=== PATIENT | male | born 1945 | race Caucasian/White ===

== ENCOUNTER 2017-06-25 10:10 | Inpatient (IN) ==
[2017-06-25] MEDS ORDERED: VANCOMYCIN INJ 1,500 MG in SODIUM CHLORIDE 0.9% 500 ML IV STA (10:37)
[2017-06-25 10:41] LABS: Basophils % 0.4 % (0.0-0.8); Hematocrit 43.5 VOL% (42.0-52.0); Hemoglobin 14.7 GM/DL (14.0-18.0); Immature Granulocytes % 0.5 %; Immature Granulocytes Absolute 0.05 #; Lymphocytes # 1.3 10*3/uL (1.4-4.0); Lymphocytes % 13.2 % (21.2-54.2); Mean Corpuscular HGB Conc 33.8 GM/DL (32-36); Mean Corpuscular Hemoglobin 31 PG (27-34); Mean Corpuscular Volume 90.4 FL (87-102); Mean Platelet Volume 9.9 FL (9.6-12.0); Monocytes # 0.7 10*3/uL (0.11-0.8); Monocytes % 6.6 % (1.7-12.7); Neutrophils # 8.1 10*3/uL (1.4-7.4); Neutrophils % 79.3 % (38.7-73.9); Platelet Count 199 T/CUMM (130-400); Red Blood Count 4.81 MC/CUMM (3.8-5.5); Red Cell Distribution Width 12.8 % (9.3-17.3); White Blood Count 10.2 T/CUMM (4-12)
[2017-06-25] MEDS ORDERED: SODIUM CHLORIDE 0.9% 1,000 ML IV STA ×2 (10:45→12:03)
[2017-06-25 10:50] LABS: PT Patient Result 10.7 SECS; Partial Thromboplastin Time 26.9 SECS (0-40)
[2017-06-25 11:01] LABS: Band Neutrophils 5 % (0-10); Lymphocytes 13 % (20-55); Segmented Neutrophils 79 % (50-85); Total Cells Counted 100
[2017-06-25 11:02] LABS: Hypochromasia 1+; Platelet Estimate Adequate
[2017-06-25 11:10] LABS: Bilirubin,Total 0.5 MG/DL (0.2-1.0); Calcium 8.7 MG/DL (8.5-10.1); Osmolality,Calculated 272.8 MOS/KG (273-304); Potassium 4.6 MMOL/L (3.5-5.1); Total Protein 8.3 G/DL (6.4-8.3)
[2017-06-25 11:38] LABS: Lactic Acid 2.7 MMOL/L (0.4-2.0)
[2017-06-25] MEDS ORDERED: ONDANSETRON 4 MG/2 ML VIAL IV PRN (11:48)
[2017-06-25] MEDS ORDERED: DEXTROSE 50% 25 GM/50 ML VIAL IV PRN (11:48)
[2017-06-25] MEDS ORDERED: ACETAMINOPHEN 325 MG TABLET PO PRN ×2 (11:48→15:13)
[2017-06-25] MEDS ORDERED: GLUCAGON 1 MG VIAL IM PRN (11:48)
[2017-06-25 12:55] LABS: Apearance,Urine CLEAR (Clear); Bilirubin,Urine Negative (Negative); Blood, Urine Negative (Negative); Glucose,Urine (UA) 50 mg/dL (Negative); Hyaline Casts,Urine 2 /LPF (0-3); Ketones,Urine 5 mg/dL (Negative); Mucus,Urine Occasional /LPF (Occasional); Nitrite,Urine Negative (Negative); Protein,Urine 30 MG/DL; Urine Color Yellow (Yellow); Urine Urobilinogen < 2.0 EU/DL (0.2-1.0); WBC,Urine 1 /HPF (0-6)
[2017-06-25] MEDS ORDERED: traMADol 50 MG TABLET PO PRN (14:05)
[2017-06-25] MEDS: SODIUM CHLORIDE 0.9% 1,000 ML IV SCH ×3 (15:40→23:40)
[2017-06-25] MEDS: PIPERACILLIN/TAZOBACTAM 3,375 MG in SODIUM CHLORIDE 0.9% 100 ML IV SCH ×2 (15:41→22:55)
[2017-06-25] MEDS ORDERED: DIPHENOXYLATE/ATROPINE 2.5-0.025 MG TABLET PO PRN (17:36)
[2017-06-25] MEDS: INSULIN LISPRO 100 UNIT/ML SUBCUT SCH ×2 (17:38→22:42)
[2017-06-25] MEDS: DIPHENOXYLATE/ATROPINE 2.5-0.025 MG TABLET PO SCH (17:44)
[2017-06-25] MEDS: ACETAMINOPHEN 500 MG TABLET PO PRN (20:19)
[2017-06-25] MEDS: DOCUSATE SODIUM 100 MG CAPSULE PO SCH (20:22)
[2017-06-26 01:13] LABS: Basophils % 0.5 % (0.0-0.8); Eosinophils % 0.1 % (0.00-10.9); Hemoglobin 12.5 GM/DL (14.0-18.0); Immature Granulocytes % 0.5 %; Immature Granulocytes Absolute 0.04 #; Lymphocytes # 1.8 10*3/uL (1.4-4.0); Lymphocytes % 20.9 % (21.2-54.2); Mean Corpuscular HGB Conc 32.9 GM/DL (32-36); Mean Corpuscular Hemoglobin 30 PG (27-34); Mean Corpuscular Volume 92.2 FL (87-102); Mean Platelet Volume 10.3 FL (9.6-12.0); Monocytes # 0.6 10*3/uL (0.11-0.8); Monocytes % 7.4 % (1.7-12.7); Neutrophils # 5.9 10*3/uL (1.4-7.4); Neutrophils % 70.6 % (38.7-73.9); Platelet Count 181 T/CUMM (130-400); Red Blood Count 4.12 MC/CUMM (3.8-5.5); White Blood Count 8.4 T/CUMM (4-12)
[2017-06-26 01:21] LABS: Calcium 7.5 MG/DL (8.5-10.1); Osmolality,Calculated 277.8 MOS/KG (273-304); Potassium 3.8 MMOL/L (3.5-5.1)
[2017-06-26] MEDS: PIPERACILLIN/TAZOBACTAM 3,375 MG in SODIUM CHLORIDE 0.9% 100 ML IV SCH ×3 (06:31→22:40)
[2017-06-26] MEDS: SODIUM CHLORIDE 0.9% 1,000 ML IV SCH ×2 (06:32→15:27)
[2017-06-26] MEDS: INSULIN LISPRO 100 UNIT/ML SUBCUT SCH ×4 (08:19→22:00)
[2017-06-26] MEDS: PANTOPRAZOLE 40 MG TABLET PO SCH (08:20)
[2017-06-26] MEDS: METOPROLOL TARTRATE 25 MG TABLET PO SCH (08:20)
[2017-06-26] MEDS: CLOPIDOGREL 75 MG TABLET PO SCH (08:20)
[2017-06-26] MEDS: DOCUSATE SODIUM 100 MG CAPSULE PO SCH ×3 (08:20→21:59)
[2017-06-26] MEDS: PRAVASTATIN 40 MG TABLET PO SCH (08:21)
[2017-06-26] MEDS: ASPIRIN EC 81 MG TABLET PO SCH (08:21)
[2017-06-26] MEDS: ENOXAPARIN 30 MG/0.3 ML SYRINGE SUBCUT SCH (08:31)
[2017-06-26] MEDS: traMADol 50 MG TABLET PO PRN (08:31)
[2017-06-26] MEDS: LIDOCAINE 5% PATCH TRANSDERM SCH (08:32)
[2017-06-26] MEDS ORDERED: LISINOPRIL/HCTZ 10-12.5 MG TABLET PO SCH (09:00)
[2017-06-26] MEDS: ACETAMINOPHEN 500 MG TABLET PO PRN (15:25)
[2017-06-26] MEDS ORDERED: VANCOMYCIN INJ 1,250 MG in SODIUM CHLORIDE 0.45% 250 ML IV SCH (18:00)
[2017-06-26] MEDS: CHLORHEXIDINE 0.12% ORAL RINSE 60 ML BOTTLE SWISH/SPIT SCH (22:02)
[2017-06-27] MEDS: SODIUM CHLORIDE 0.9% 1,000 ML IV SCH ×2 (00:30→02:20)
[2017-06-27] MEDS: ACETAMINOPHEN 500 MG TABLET PO PRN ×2 (05:02→21:12)
[2017-06-27] MEDS: traMADol 50 MG TABLET PO PRN ×2 (05:30→21:15)
[2017-06-27] MEDS: PIPERACILLIN/TAZOBACTAM 3,375 MG in SODIUM CHLORIDE 0.9% 100 ML IV SCH ×2 (06:25→18:09)
[2017-06-27 06:46] LABS: Basophils % 0.4 % (0.0-0.8); Eosinophils # 0.1 10*3/uL (0.0-0.87); Eosinophils % 0.7 % (0.00-10.9); Hematocrit 35.4 VOL% (42.0-52.0); Hemoglobin 12.2 GM/DL (14.0-18.0); Immature Granulocytes % 0.4 %; Immature Granulocytes Absolute 0.03 #; Lymphocytes # 1.2 10*3/uL (1.4-4.0); Lymphocytes % 16.4 % (21.2-54.2); Mean Corpuscular HGB Conc 34.5 GM/DL (32-36); Mean Corpuscular Hemoglobin 31 PG (27-34); Mean Corpuscular Volume 88.5 FL (87-102); Mean Platelet Volume 10.4 FL (9.6-12.0); Monocytes # 0.5 10*3/uL (0.11-0.8); Neutrophils # 5.6 10*3/uL (1.4-7.4); Neutrophils % 75.1 % (38.7-73.9); Platelet Count 148 T/CUMM (130-400); Red Cell Distribution Width 12.9 % (9.3-17.3); White Blood Count 7.4 T/CUMM (4-12)
[2017-06-27 07:12] LABS: Osmolality,Calculated 272.8 MOS/KG (273-304); Potassium 4.2 MMOL/L (3.5-5.1)
[2017-06-27] MEDS: LIDOCAINE 5% PATCH TRANSDERM SCH (09:30)
[2017-06-27] MEDS: CHLORHEXIDINE 0.12% ORAL RINSE 60 ML BOTTLE SWISH/SPIT SCH ×2 (09:32→21:17)
[2017-06-27] MEDS: DOCUSATE SODIUM 100 MG CAPSULE PO SCH ×2 (09:33→21:12)
[2017-06-27] MEDS: PANTOPRAZOLE 40 MG TABLET PO SCH (09:33)
[2017-06-27] MEDS: PRAVASTATIN 40 MG TABLET PO SCH (09:34)
[2017-06-27] MEDS: INSULIN LISPRO 100 UNIT/ML SUBCUT SCH ×4 (10:10→21:12)
[2017-06-27] MEDS: metFORMIN 500 MG TABLET PO SCH ×3 (10:10→17:48)
[2017-06-27] MEDS: METOPROLOL TARTRATE 25 MG TABLET PO SCH (10:14)
[2017-06-27] MEDS: CLOPIDOGREL 75 MG TABLET PO SCH (10:22)
[2017-06-27] MEDS: ASPIRIN EC 81 MG TABLET PO SCH (10:23)
[2017-06-27] MEDS: ENOXAPARIN 30 MG/0.3 ML SYRINGE SUBCUT SCH (10:23)
[2017-06-27] MEDS ORDERED: CHLORHEXIDINE 0.12% ORAL RINSE 60 ML BOTTLE SWISH/SPIT ONE (11:41)
[2017-06-27] MEDS ORDERED: LIDOCAINE 1%/EPI INJ 20 ML VIAL ONE (11:41)
[2017-06-27] MEDS ORDERED: ONDANSETRON 4 MG/2 ML VIAL ONE (13:24)
[2017-06-27] MEDS ORDERED: ROCURONIUM 100 MG/10 ML VIAL IV ONE (13:24)
[2017-06-27] MEDS ORDERED: PROPOFOL 200 MG/20 ML VIAL IV ONE (13:24)
[2017-06-27] MEDS ORDERED: SUCCINYLCHOLINE 200 MG/10 ML VIAL ONE (13:24)
[2017-06-27] MEDS ORDERED: fentaNYL 100 MCG/2 ML VIAL ONE (13:24)
[2017-06-27] MEDS ORDERED: METOPROLOL TARTRATE 5 MG/5 ML VIAL IV ONE (13:24)
[2017-06-27] MEDS ORDERED: SEVOFLURANE 1 UNIT/15 MINUTE INH ONE (13:25)
[2017-06-27] MEDS: VANCOMYCIN INJ 1,250 MG in SODIUM CHLORIDE 0.45% 250 ML IV SCH ×2 (17:25→22:37)
[2017-06-28] MEDS: SODIUM CHLORIDE 0.9% 1,000 ML IV SCH ×3 (01:04→22:15)
[2017-06-28] MEDS: PIPERACILLIN/TAZOBACTAM 3,375 MG in SODIUM CHLORIDE 0.9% 100 ML IV SCH ×3 (01:52→19:44)
[2017-06-28 05:18] LABS: Basophils % 0.5 % (0.0-0.8); Eosinophils # 0.1 10*3/uL (0.0-0.87); Eosinophils % 1.2 % (0.00-10.9); Hematocrit 35.8 VOL% (42.0-52.0); Hemoglobin 11.8 GM/DL (14.0-18.0); Immature Granulocytes % 0.5 %; Immature Granulocytes Absolute 0.03 #; Lymphocytes # 1.4 10*3/uL (1.4-4.0); Lymphocytes % 21.3 % (21.2-54.2); Mean Corpuscular Hemoglobin 31 PG (27-34); Mean Corpuscular Volume 92.7 FL (87-102); Mean Platelet Volume 10.2 FL (9.6-12.0); Monocytes # 0.5 10*3/uL (0.11-0.8); Neutrophils # 4.6 10*3/uL (1.4-7.4); Neutrophils % 68.5 % (38.7-73.9); Platelet Count 148 T/CUMM (130-400); Red Blood Count 3.86 MC/CUMM (3.8-5.5); Red Cell Distribution Width 12.7 % (9.3-17.3); White Blood Count 6.7 T/CUMM (4-12)
[2017-06-28 06:14] LABS: Osmolality,Calculated 278.5 MOS/KG (273-304); Potassium 4.3 MMOL/L (3.5-5.1)
[2017-06-28] MEDS: LIDOCAINE 5% PATCH TRANSDERM SCH (08:40)
[2017-06-28] MEDS: ENOXAPARIN 30 MG/0.3 ML SYRINGE SUBCUT SCH (08:42)
[2017-06-28] MEDS: PANTOPRAZOLE 40 MG TABLET PO SCH (08:43)
[2017-06-28] MEDS: ASPIRIN EC 81 MG TABLET PO SCH (08:43)
[2017-06-28] MEDS: METOPROLOL TARTRATE 25 MG TABLET PO SCH (08:43)
[2017-06-28] MEDS: metFORMIN 500 MG TABLET PO SCH ×3 (08:44→17:25)
[2017-06-28] MEDS: CLOPIDOGREL 75 MG TABLET PO SCH (08:46)
[2017-06-28] MEDS: PRAVASTATIN 40 MG TABLET PO SCH (08:46)
[2017-06-28] MEDS: DOCUSATE SODIUM 100 MG CAPSULE PO SCH ×2 (08:47→21:44)
[2017-06-28] MEDS: CHLORHEXIDINE 0.12% ORAL RINSE 60 ML BOTTLE SWISH/SPIT SCH ×2 (08:48→21:40)
[2017-06-28] MEDS: VANCOMYCIN INJ 1,250 MG in SODIUM CHLORIDE 0.45% 250 ML IV SCH ×2 (08:59→23:47)
[2017-06-28] MEDS: INSULIN LISPRO 100 UNIT/ML SUBCUT SCH ×4 (09:00→21:41)
[2017-06-28] MEDS ORDERED: diphenhydrAMINE CAP 25 MG CAPSULE PO PRN (16:34)
[2017-06-28] MEDS ORDERED: methylPREDNISolone SOD SUC 40 MG/1 ML VIAL IV ONE (16:38)
[2017-06-29] MEDS: PIPERACILLIN/TAZOBACTAM 3,375 MG in SODIUM CHLORIDE 0.9% 100 ML IV SCH ×3 (04:11→20:02)
[2017-06-29 06:28] LABS: Basophils % 0.1 % (0.0-0.8); Hematocrit 34.3 VOL% (42.0-52.0); Hemoglobin 12.2 GM/DL (14.0-18.0); Immature Granulocytes % 0.5 %; Immature Granulocytes Absolute 0.04 #; Lymphocytes % 12.8 % (21.2-54.2); Mean Corpuscular HGB Conc 35.6 GM/DL (32-36); Mean Corpuscular Hemoglobin 31 PG (27-34); Mean Corpuscular Volume 86.2 FL (87-102); Monocytes # 0.4 10*3/uL (0.11-0.8); Monocytes % 5.6 % (1.7-12.7); Neutrophils # 6.1 10*3/uL (1.4-7.4); Platelet Count 183 T/CUMM (130-400); Red Blood Count 3.98 MC/CUMM (3.8-5.5); Red Cell Distribution Width 12.2 % (9.3-17.3); White Blood Count 7.5 T/CUMM (4-12)
[2017-06-29 06:56] LABS: Calcium 8.5 MG/DL (8.5-10.1); Osmolality,Calculated 280.8 MOS/KG (273-304); Potassium 4.5 MMOL/L (3.5-5.1)
[2017-06-29] MEDS: INSULIN LISPRO 100 UNIT/ML SUBCUT SCH ×4 (08:45→21:25)
[2017-06-29] MEDS: PRAVASTATIN 40 MG TABLET PO SCH (08:46)
[2017-06-29] MEDS: metFORMIN 500 MG TABLET PO SCH ×3 (08:46→17:08)
[2017-06-29] MEDS: ENOXAPARIN 30 MG/0.3 ML SYRINGE SUBCUT SCH (08:46)
[2017-06-29] MEDS: METOPROLOL TARTRATE 25 MG TABLET PO SCH (08:47)
[2017-06-29] MEDS: DOCUSATE SODIUM 100 MG CAPSULE PO SCH ×2 (08:47→21:29)
[2017-06-29] MEDS: ASPIRIN EC 81 MG TABLET PO SCH (08:47)
[2017-06-29] MEDS: CLOPIDOGREL 75 MG TABLET PO SCH (08:47)
[2017-06-29] MEDS: PANTOPRAZOLE 40 MG TABLET PO SCH (08:47)
[2017-06-29] MEDS: CHLORHEXIDINE 0.12% ORAL RINSE 60 ML BOTTLE SWISH/SPIT SCH ×2 (08:48→21:26)
[2017-06-29] MEDS: VANCOMYCIN INJ 1,250 MG in SODIUM CHLORIDE 0.45% 250 ML IV SCH (15:35)
[2017-06-29] MEDS: LIDOCAINE 5% PATCH TRANSDERM SCH (17:58)
[2017-06-29] MEDS: ZALEPLON 5 MG CAPSULE PO PRN (21:26)
[2017-06-30] MEDS: VANCOMYCIN INJ 1,250 MG in SODIUM CHLORIDE 0.45% 250 ML IV SCH
[2017-06-30] MEDS: PIPERACILLIN/TAZOBACTAM 3,375 MG in SODIUM CHLORIDE 0.9% 100 ML IV SCH (05:17)
[2017-06-30] MEDS: ENOXAPARIN 30 MG/0.3 ML SYRINGE SUBCUT SCH (08:45)
[2017-06-30] MEDS: metFORMIN 500 MG TABLET PO SCH ×3 (08:45→16:56)
[2017-06-30] MEDS: CHLORHEXIDINE 0.12% ORAL RINSE 60 ML BOTTLE SWISH/SPIT SCH ×2 (08:45→22:33)
[2017-06-30] MEDS: INSULIN LISPRO 100 UNIT/ML SUBCUT SCH ×3 (08:45→15:37)
[2017-06-30] MEDS: PRAVASTATIN 40 MG TABLET PO SCH (08:46)
[2017-06-30] MEDS: DOCUSATE SODIUM 100 MG CAPSULE PO SCH ×2 (08:46→22:34)
[2017-06-30] MEDS: PANTOPRAZOLE 40 MG TABLET PO SCH (08:46)
[2017-06-30] MEDS: CLOPIDOGREL 75 MG TABLET PO SCH (08:46)
[2017-06-30] MEDS: METOPROLOL TARTRATE 25 MG TABLET PO SCH (08:46)
[2017-06-30] MEDS: ASPIRIN EC 81 MG TABLET PO SCH (08:46)
[2017-06-30] MEDS: GLIMEPIRIDE 4 MG TABLET PO SCH ×2 (08:47→16:56)
[2017-06-30] MEDS: AMPICILLIN/SULBACTAM 1,500 MG in SODIUM CHLORIDE 0.9% 100 ML IV SCH ×2 (11:45→22:53)
[2017-06-30] MEDS: ZALEPLON 5 MG CAPSULE PO PRN (22:45)
[2017-07-01] MEDS: INSULIN LISPRO 100 UNIT/ML SUBCUT SCH ×3 (01:14→12:44)
[2017-07-01] MEDS: traMADol 50 MG TABLET PO PRN (01:52)
[2017-07-01] MEDS: AMPICILLIN/SULBACTAM 1,500 MG in SODIUM CHLORIDE 0.9% 100 ML IV SCH ×2 (04:26→09:22)
[2017-07-01 06:35] LABS: Basophils % 0.5 % (0.0-0.8); Eosinophils # 0.2 10*3/uL (0.0-0.87); Eosinophils % 2.9 % (0.00-10.9); Hematocrit 33.1 VOL% (42.0-52.0); Hemoglobin 11.2 GM/DL (14.0-18.0); Immature Granulocytes % 0.6 %; Immature Granulocytes Absolute 0.05 #; Lymphocytes # 1.8 10*3/uL (1.4-4.0); Lymphocytes % 22.4 % (21.2-54.2); Mean Corpuscular HGB Conc 33.8 GM/DL (32-36); Mean Corpuscular Hemoglobin 30 PG (27-34); Mean Corpuscular Volume 88.5 FL (87-102); Mean Platelet Volume 10.5 FL (9.6-12.0); Monocytes # 0.8 10*3/uL (0.11-0.8); Monocytes % 10.1 % (1.7-12.7); Neutrophils % 63.5 % (38.7-73.9); Platelet Count 255 T/CUMM (130-400); Red Blood Count 3.74 MC/CUMM (3.8-5.5); Red Cell Distribution Width 12.5 % (9.3-17.3); White Blood Count 7.9 T/CUMM (4-12)
[2017-07-01 07:02] LABS: Calcium 8.5 MG/DL (8.5-10.1); Osmolality,Calculated 281.4 MOS/KG (273-304)
[2017-07-01] MEDS: GLIMEPIRIDE 4 MG TABLET PO SCH (09:20)
[2017-07-01] MEDS: DOCUSATE SODIUM 100 MG CAPSULE PO SCH (09:20)
[2017-07-01] MEDS: ASPIRIN EC 81 MG TABLET PO SCH (09:20)
[2017-07-01] MEDS: metFORMIN 500 MG TABLET PO SCH ×2 (09:20→12:43)
[2017-07-01] MEDS: CLOPIDOGREL 75 MG TABLET PO SCH (09:20)
[2017-07-01] MEDS: PRAVASTATIN 40 MG TABLET PO SCH (09:20)
[2017-07-01] MEDS: ENOXAPARIN 30 MG/0.3 ML SYRINGE SUBCUT SCH (09:21)
[2017-07-01] MEDS: PANTOPRAZOLE 40 MG TABLET PO SCH (09:21)
[2017-07-01] MEDS: METOPROLOL TARTRATE 25 MG TABLET PO SCH (09:21)
[2017-07-01] MEDS: CHLORHEXIDINE 0.12% ORAL RINSE 60 ML BOTTLE SWISH/SPIT SCH (09:31)
[2017-07-01 12:01] VITALS: BP 136/66
== END 2017-07-01 13:10 | disposition home or self-care (01) | DRG 872 ==
LOC: EDUNIT# → EDBD → N.ED 10:10 → N.EDINP 11:47 → N.2E 12:43
PROVIDERS: ADMIT Internal Medicine; ATTEND Internal Medicine

== ENCOUNTER 2021-05-08 08:15 | Observation (INO) ==
[2021-05-08 08:43] LABS: Basophils % 0.5 % (0.0-0.8); Eosinophils # 0.1 10*3/uL (0.0-0.87); Eosinophils % 1.5 % (0.00-10.9); Hematocrit 46.7 VOL% (42.0-52.0); Hemoglobin 15.2 GM/DL (14.0-18.0); Immature Granulocytes % 0.2 %; Immature Granulocytes Absolute 0.01 #; Lymphocytes # 1.9 10*3/uL (1.4-4.0); Lymphocytes % 29.1 % (21.2-54.2); Mean Corpuscular HGB Conc 32.5 GM/DL (32-36); Mean Corpuscular Volume 93.6 FL (87-102); Mean Platelet Volume 10.2 FL (9.6-12.0); Monocytes % 8.4 % (1.7-12.7); Neutrophils % 60.3 % (38.7-73.9); Platelet Count 224 T/CUMM (130-400); Red Blood Count 4.99 MC/CUMM (3.8-5.5); Red Cell Distribution Width 13.2 % (9.3-17.3); White Blood Count 6.5 T/CUMM (4-12)
[2021-05-08] MEDS ORDERED: ASPIRIN 325 MG TABLET PO STA (08:49)
[2021-05-08] MEDS ORDERED: NITROGLYCERIN 2% OINT 1 INCH/GM PACK TOP STA (08:49)
[2021-05-08] MEDS ORDERED: ONDANSETRON 4 MG/2 ML VIAL IV STA (08:50)
[2021-05-08] MEDS ORDERED: MORPHINE 10 MG/1 ML VIAL IV STA (08:50)
[2021-05-08] MEDS ORDERED: MORPHINE 2 MG/1 ML SYRINGE ONE (08:56)
[2021-05-08 09:41] LABS: Albumin 4.2 G/DL (3.4-5.0); Bilirubin,Total 1.4 MG/DL (0.20-1.00); Calcium 9.5 MG/DL (8.5-10.1); Osmolality,Calculated 282.8 MOS/KG (273-304); Potassium 4.7 MMOL/L (3.5-5.1); Total Protein 7.6 G/DL (6.4-8.2)
[2021-05-08] MEDS ORDERED: SODIUM CHLORIDE 0.9% 1,000 ML IV STA (10:45)
[2021-05-08] MEDS ORDERED: GLUCAGON 1 MG VIAL IM PRN (11:58)
[2021-05-08] MEDS ORDERED: ACETAMINOPHEN 325 MG TABLET PO PRN (11:58)
[2021-05-08] MEDS ORDERED: ONDANSETRON 4 MG/2 ML VIAL IV PRN (11:58)
[2021-05-08] MEDS ORDERED: DEXTROSE 50% 25 GM/50 ML SYRINGE IV PRN (12:02)
[2021-05-08] MEDS: INSULIN LISPRO 100 UNIT/ML SUBCUT SCH ×3 (13:10→20:34)
[2021-05-08] MEDS: SODIUM CHLORIDE 0.9% 1,000 ML IV SCH ×2 (19:50→22:05)
[2021-05-08] MEDS: NITROGLYCERIN 2% OINT 1 INCH/GM PACK TOP SCH (20:33)
[2021-05-08] MEDS: AMITRIPTYLINE 50 MG TABLET PO SCH (21:29)
[2021-05-08] MEDS: DOCUSATE SODIUM 100 MG CAPSULE PO SCH (21:31)
[2021-05-09 00:44] LABS: Calcium 8.4 MG/DL (8.5-10.1); Osmolality,Calculated 282.8 MOS/KG (273-304); Potassium 4.1 MMOL/L (3.5-5.1)
[2021-05-09 00:45] LABS: Basophils % 0.3 % (0.0-0.8); Eosinophils # 0.1 10*3/uL (0.0-0.87); Eosinophils % 1.3 % (0.00-10.9); Hematocrit 40.4 VOL% (42.0-52.0); Hemoglobin 13.2 GM/DL (14.0-18.0); Immature Granulocytes % 0.3 %; Immature Granulocytes Absolute 0.02 #; Lymphocytes # 2.2 10*3/uL (1.4-4.0); Lymphocytes % 31.1 % (21.2-54.2); Mean Corpuscular HGB Conc 32.7 GM/DL (32-36); Mean Corpuscular Volume 93.3 FL (87-102); Mean Platelet Volume 10.5 FL (9.6-12.0); Monocytes % 9.8 % (1.7-12.7); Neutrophils % 57.2 % (38.7-73.9); Platelet Count 195 T/CUMM (130-400); Red Blood Count 4.33 MC/CUMM (3.8-5.5)
[2021-05-09] MEDS: NITROGLYCERIN 2% OINT 1 INCH/GM PACK TOP SCH ×4 (01:04→18:10)
[2021-05-09] MEDS: SODIUM CHLORIDE 0.9% 1,000 ML IV SCH ×3 (03:07→22:41)
[2021-05-09 05:29] VITALS: BP 130/50
[2021-05-09] MEDS ORDERED: METOPROLOL SUCCINATE XL 50 MG TABLET PO SCH (09:00)
[2021-05-09] MEDS ORDERED: diphenhydrAMINE CAP 50 MG CAPSULE PO ONE (09:00)
[2021-05-09] MEDS ORDERED: DIAZEPAM 5 MG TABLET PO ONE (09:00)
[2021-05-09] MEDS: INSULIN LISPRO 100 UNIT/ML SUBCUT SCH ×4 (09:32→22:41)
[2021-05-09] MEDS: ASPIRIN EC 81 MG TABLET PO SCH (09:33)
[2021-05-09] MEDS: CLOPIDOGREL 75 MG TABLET PO SCH (09:34)
[2021-05-09] MEDS: SIMVASTATIN 40 MG TABLET PO SCH (09:36)
[2021-05-09] MEDS: lisinopriL 2.5 MG TABLET PO SCH (09:36)
[2021-05-09] MEDS: PANTOPRAZOLE 40 MG TABLET PO SCH (09:36)
[2021-05-09] MEDS: DOCUSATE SODIUM 100 MG CAPSULE PO SCH ×2 (09:37→21:17)
[2021-05-09] MEDS ORDERED: HEPARIN/NACL 0.9% 2 UNITS/ML 2,000 UNIT/1,000 ML BAG IV ONE (09:59)
[2021-05-09] MEDS ORDERED: MIDAZOLAM 2 MG/2 ML VIAL ONE (10:13)
[2021-05-09] MEDS ORDERED: NITROGLYCERIN DRIP 50 MG/250 ML BOTTLE IV ONE (10:13)
[2021-05-09] MEDS ORDERED: LIDOCAINE 1% 20 ML VIAL ONE (10:13)
[2021-05-09] MEDS ORDERED: HYDROmorphone 2 MG/1 ML VIAL ONE (10:13)
[2021-05-09] MEDS ORDERED: VERAPAMIL 5 MG/2 ML VIAL ONE (10:13)
[2021-05-09] MEDS ORDERED: ENOXAPARIN 30 MG/0.3 ML SYRINGE ONE (10:35)
[2021-05-09] MEDS ORDERED: TIROFIBAN 5,000 MCG/100 ML PREMIX IV ONE (11:00)
[2021-05-09] MEDS ORDERED: CLOPIDOGREL 300 MG TABLET ONE (11:46)
[2021-05-09] MEDS: AMITRIPTYLINE 50 MG TABLET PO SCH (21:16)
[2021-05-10 05:31] LABS: Basophils % 0.5 % (0.0-0.8); Eosinophils # 0.1 10*3/uL (0.0-0.87); Eosinophils % 1.5 % (0.00-10.9); Hematocrit 40.4 VOL% (42.0-52.0); Immature Granulocytes % 0.3 %; Immature Granulocytes Absolute 0.02 #; Lymphocytes # 1.5 10*3/uL (1.4-4.0); Lymphocytes % 19.9 % (21.2-54.2); Mean Corpuscular HGB Conc 32.2 GM/DL (32-36); Mean Corpuscular Volume 94.2 FL (87-102); Mean Platelet Volume 11.2 FL (9.6-12.0); Monocytes % 10.1 % (1.7-12.7); Neutrophils % 67.7 % (38.7-73.9); Platelet Count 198 T/CUMM (130-400); Red Blood Count 4.29 MC/CUMM (3.8-5.5); White Blood Count 7.3 T/CUMM (4-12)
[2021-05-10] MEDS: NITROGLYCERIN 2% OINT 1 INCH/GM PACK TOP SCH ×2 (05:32→10:38)
[2021-05-10] MEDS: SODIUM CHLORIDE 0.9% 1,000 ML IV SCH (05:33)
[2021-05-10 05:56] LABS: Calcium 8.7 MG/DL (8.5-10.1); Osmolality,Calculated 279.7 MOS/KG (273-304); Potassium 4.1 MMOL/L (3.5-5.1)
[2021-05-10] MEDS ORDERED: METOPROLOL SUCCINATE XL 25 MG TABLET PO SCH (09:00)
[2021-05-10] MEDS: PANTOPRAZOLE 40 MG TABLET PO SCH (09:26)
[2021-05-10] MEDS: CLOPIDOGREL 75 MG TABLET PO SCH (09:26)
[2021-05-10] MEDS: lisinopriL 2.5 MG TABLET PO SCH (09:26)
[2021-05-10] MEDS: DOCUSATE SODIUM 100 MG CAPSULE PO SCH (09:26)
[2021-05-10] MEDS: SIMVASTATIN 40 MG TABLET PO SCH (09:26)
[2021-05-10] MEDS: ASPIRIN EC 81 MG TABLET PO SCH (09:26)
[2021-05-10] MEDS: INSULIN LISPRO 100 UNIT/ML SUBCUT SCH (09:27)
== END 2021-05-10 11:44 | disposition home or self-care (01) ==
LOC: N.ED 08:15 → N.EDINP 08:15 → N.TELES 17:10
PROVIDERS: ADMIT Internal Medicine; ATTEND Internal Medicine